=== PATIENT | male | born 1940 | race Caucasian/White ===

== ENCOUNTER 2022-09-25 20:03 | Inpatient (IN) | payer OTHER ==
[~2022-09-25] VITALS: Ht 160 cm; Wt 56.8 kg
[2022-09-25] MEDS ORDERED: MORPHINE SULFATE 4 MG/ML CPJ (NOT FOR IM USE) IV STA (21:23)
[2022-09-25] MEDS ORDERED: ONDANSETRON HCL 4MG/2ML INJ IV STA (21:23)
[2022-09-25] MEDS ORDERED: KETOROLAC 30MG/ML VIAL IV STA (21:23)
[2022-09-25] MEDS ORDERED: SODIUM CHLORIDE 0.9% 1,000 ML IV ONE (21:30)
[2022-09-25 23:23] LABS: BASOPHILS % 0.4 % (0.0-2.0); EOSINOPHILS % 0.1 % (0.0-5.0); HEMATOCRIT. 33.1 % (42.0-52.0); HEMOGLOBIN. 11.3 g/dL (14.0-18.0); MEAN CORPUSCULAR HEMOGLOBIN 31.4 pg (28.0-32.0); MEAN PLATELET VOLUME 7.1 fl (7.4-10.4); MONOCYTES % 6.3 % (2.0-8.0); NEUTROPHILS % 78.2 % (40.0-76.0); PLATELET 292 x1000/uL (130-400)
[2022-09-25 23:27] LABS: CHLORIDE 94 mEq/L (98-107)
[2022-09-26] MEDS ORDERED: IBUP-2028 MT (01:39)
[2022-09-26] MEDS ORDERED: HYDR-4001 MT (01:39)
[2022-09-26] MEDS ORDERED: MORPHINE SULFATE 4 MG/ML CPJ (NOT FOR IM USE) IV STA (02:09)
[2022-09-26] MEDS ORDERED: ONDANSETRON HCL 4MG/2ML INJ IV STA (02:09)
[2022-09-26] MEDS ORDERED: ONDANSETRON HCL 4MG/2ML INJ IV PRN (09:15)
[2022-09-26] MEDS: AMLODIPINE 10MG TABLET PO SCH (10:15)
[2022-09-26 11:00] VITALS: BP 162/68
[2022-09-26] MEDS ORDERED: HYDRALAZINE HCL 100MG TABLET PO NR (11:45)
[2022-09-26] MEDS ORDERED: NALOXONE HCL 0.4MG/ML VIAL IV PRN (12:00)
[2022-09-26] MEDS: HYDROCODONE/ACETAMINOPHEN 10/325MG TABLET PO PRN ×2 (14:36→21:39)
[2022-09-26 15:38] VITALS: BP 153/78
[2022-09-26 17:20] LABS: CREATINE KINASE 196 IU/L (39-308)
[2022-09-26 20:00] VITALS: BP 163/72
[2022-09-26] MEDS: HYDRALAZINE HCL 100MG TABLET PO SCH (21:38)
[2022-09-26] MEDS: ACETAMINOPHEN 325MG TABLET PO PRN (23:35)
[2022-09-27 07:57] VITALS: BP 135/55
[2022-09-27] MEDS: HYDRALAZINE HCL 100MG TABLET PO SCH ×2 (09:13→20:50)
[2022-09-27] MEDS: AMLODIPINE 10MG TABLET PO SCH (09:14)
[2022-09-27] MEDS: ACETAMINOPHEN 325MG TABLET PO PRN ×2 (10:11→23:50)
[2022-09-27] MEDS ORDERED: MORPHINE SULFATE 15MG TABLET SR PO PRN (11:00)
[2022-09-27 12:00] VITALS: BP 124/58
[2022-09-27] MEDS ORDERED: MORPHINE SULFATE 4 MG/ML CPJ (NOT FOR IM USE) IV PRN (13:45)
[2022-09-27 20:00] VITALS: BP 106/58
[2022-09-28] VITALS: BP 129/55
[2022-09-28 04:00] VITALS: BP 131/51
[2022-09-28 08:00] VITALS: BP 135/65
[2022-09-28] MEDS: AMLODIPINE 10MG TABLET PO SCH (09:00)
[2022-09-28] MEDS: HYDRALAZINE HCL 100MG TABLET PO SCH ×2 (09:00→20:34)
[2022-09-28 12:00] VITALS: BP 133/62
[2022-09-28] MEDS: DOCUSATE SODIUM 250MG CAPSULE PO SCH (12:30)
[2022-09-28] MEDS ORDERED: LACTULOSE 20G/30ML UDC PO NR (12:30)
[2022-09-28] MEDS ORDERED: MORPHINE SULFATE 2 MG/ML CPJ (NOT FOR IM USE) IV PRN (12:39)
[2022-09-28] MEDS ORDERED: NA PHOS,M-B/NA PHOS,DI-BA ENEMA 118ML PR NR (15:15)
[2022-09-28 20:14] VITALS: BP 160/66
[2022-09-28 23:31] VITALS: BP 100/42
[2022-09-29] MEDS: HYDROCODONE/ACETAMINOPHEN 10/325MG TABLET PO PRN ×4 (00:14→23:34)
[2022-09-29 04:00] VITALS: BP 127/58
[2022-09-29 08:00] VITALS: BP 119/52
[2022-09-29] MEDS: AMLODIPINE 10MG TABLET PO SCH (08:21)
[2022-09-29] MEDS: DOCUSATE SODIUM 250MG CAPSULE PO SCH (08:21)
[2022-09-29] MEDS: HYDRALAZINE HCL 100MG TABLET PO SCH ×2 (08:21→22:36)
[2022-09-29 12:00] VITALS: BP 127/64
[2022-09-29 16:00] VITALS: BP 138/60
[2022-09-29 19:44] VITALS: BP 135/60
[2022-09-29 21:54] LABS: INR 1.1; PROTHROMBIN TIME 11.7 sec (9.6-11.0)
[2022-09-29] MEDS: DEXT 5%/LACTATED RINGERS 1,000 ML IV SCH (23:35)
[2022-09-29 23:42] VITALS: BP 114/49
[2022-09-30 04:00] VITALS: BP 110/62
[2022-09-30] MEDS ORDERED: LIDOCAINE HCL 1%/EPI 1:200,000 30 ML VIAL ONE (06:54)
[2022-09-30] MEDS ORDERED: THROMBIN (BOVINE) 5000 UNITS/VIAL TOP ONE (06:54)
[2022-09-30 06:55] VITALS: BP 110/64
[2022-09-30] MEDS ORDERED: GENTAMICIN SULF 40MG/ML 2ML VIAL ONE (06:55)
[2022-09-30] MEDS ORDERED: PROPOFOL 200MG/20ML VIAL IV ONE (07:18)
[2022-09-30] MEDS ORDERED: ROCURONIUM BROMIDE 10MG/ML VIAL 5ML IV ONE ×2 (07:18→08:06)
[2022-09-30] MEDS ORDERED: LIDOCAINE HCL 1% 20ML VIAL (Pyxis) INJ ONE (07:18)
[2022-09-30] MEDS ORDERED: MIDAZOLAM HCL 2 MG/2 ML VIAL ONE (07:19)
[2022-09-30] MEDS ORDERED: FENTANYL CITRATE/PF 50MCG/ML 2ML VIAL ONE (07:19)
[2022-09-30] MEDS ORDERED: KETOROLAC 30MG/ML VIAL ONE (08:30)
[2022-09-30] MEDS ORDERED: DEXAMETHASONE 4MG/ML 1ML VIAL ONE (08:30)
[2022-09-30] MEDS ORDERED: ONDANSETRON HCL 4MG/2ML INJ ONE (08:30)
[2022-09-30] MEDS ORDERED: METOCLOPRAMIDE HCL 10MG/2ML VIAL ONE (08:30)
[2022-09-30] MEDS ORDERED: EPHEDRINE SULFATE 50MG/ML VIAL ONE (08:30)
[2022-09-30] MEDS: DOCUSATE SODIUM 250MG CAPSULE PO SCH (09:00)
[2022-09-30] MEDS ORDERED: ONDANSETRON HCL 4MG/2ML INJ IV PRN (09:00)
[2022-09-30] MEDS: AMLODIPINE 10MG TABLET PO SCH (09:00)
[2022-09-30] MEDS ORDERED: FENTANYL CITRATE/PF 50MCG/ML 2ML VIAL IV PRN (09:00)
[2022-09-30] MEDS: HYDRALAZINE HCL 100MG TABLET PO SCH ×2 (09:00→21:41)
[2022-09-30] MEDS ORDERED: MEPERIDINE HCL/PF 25MG/ML CPJ IV PRN (09:00)
[2022-09-30] MEDS ORDERED: HYDROMORPHONE HCL/PF 2MG/ML CPJ IV PRN (09:00)
[2022-09-30] MEDS ORDERED: SODIUM CHLORIDE 0.9% 1,000 ML IV SCH (09:00)
[2022-09-30] MEDS ORDERED: NEOSTIGMINE METHYLSULFATE 1MG/ML 10 ML VIAL ONE (09:01)
[2022-09-30] MEDS ORDERED: GLYCOPYRROLATE 0.2 MG/ML 2ML VIAL ONE (09:02)
[2022-09-30] MEDS ORDERED: HYDRALAZINE 20MG/ML VIAL IV PRN (09:30)
[2022-09-30 12:02] VITALS: BP 118/63
[2022-09-30] MEDS ORDERED: CEFAZOLIN SODIUM 1000MG/VIAL IV SCH (14:00)
[2022-09-30] MEDS: CEFAZOLIN 1000MG PREMIX 50 ML IV SCH ×2 (14:59→21:40)
[2022-09-30 15:45] VITALS: BP 105/65
[2022-09-30] MEDS: MORPHINE SULFATE 4 MG/ML CPJ (NOT FOR IM USE) IV PRN (16:10)
[2022-09-30] MEDS: DEXT 5%/LACTATED RINGERS 1,000 ML IV SCH (16:16)
[2022-09-30 20:00] VITALS: BP 138/47
[2022-10-01] VITALS: BP 111/66
[2022-10-01] MEDS: MORPHINE SULFATE 4 MG/ML CPJ (NOT FOR IM USE) IV PRN ×4 (00:14→22:33)
[2022-10-01] MEDS: DEXT 5%/LACTATED RINGERS 1,000 ML IV SCH (01:35)
[2022-10-01 04:00] VITALS: BP 128/68
[2022-10-01] MEDS: CEFAZOLIN 1000MG PREMIX 50 ML IV SCH ×2 (06:16→13:24)
[2022-10-01 08:00] VITALS: BP 116/60
[2022-10-01] MEDS: DOCUSATE SODIUM 250MG CAPSULE PO SCH (08:20)
[2022-10-01] MEDS: HYDRALAZINE HCL 100MG TABLET PO SCH ×2 (08:20→22:01)
[2022-10-01] MEDS: AMLODIPINE 10MG TABLET PO SCH (08:21)
[2022-10-01 12:00] VITALS: BP 115/47
[2022-10-01] MEDS ORDERED: HYDRALAZINE 10 MG in SODIUM CHLORIDE 0.9% 49.5 ML IV PRN (13:45)
[2022-10-01 16:00] VITALS: BP 130/83
[2022-10-01 16:00] LABS: BASOPHILS % 0.2 % (0.0-2.0); EOSINOPHILS % 0.1 % (0.0-5.0); HEMATOCRIT. 29.4 % (42.0-52.0); HEMOGLOBIN. 10.2 g/dL (14.0-18.0); LYMPHOCYTES % 7.6 % (20.0-50.0); MEAN CORPUSCULAR HEMOGLOBIN 32.1 pg (28.0-32.0); MEAN CORPUSCULAR VOLUME 92.2 fL (80.0-94.0); MEAN PLATELET VOLUME 6.9 fl (7.4-10.4); NEUTROPHILS % 82.1 % (40.0-76.0); PLATELET 345 x1000/uL (130-400); RED BLOOD CELL COUNT 3.19 mill/uL (4.7-6.1); RED CELL DISTRIBUTION WIDTH 13.4 % (11.6-14.6)
[2022-10-01 16:23] LABS: CHLORIDE 95 mEq/L (98-107)
[2022-10-01] MEDS ORDERED: HYDRALAZINE 5 MG in SODIUM CHLORIDE 0.9% 49.75 ML IV PRN (17:45)
[2022-10-01 20:00] VITALS: BP 124/61
[2022-10-02] VITALS (7 sets, daily range): BP systolic 119–138; BP diastolic 55–72
[2022-10-02] MEDS: DEXT 5%/LACTATED RINGERS 1,000 ML IV SCH ×2 (00:16→13:20)
[2022-10-02] MEDS: MORPHINE SULFATE 4 MG/ML CPJ (NOT FOR IM USE) IV PRN ×5 (03:43→22:20)
[2022-10-02] MEDS: AMLODIPINE 10MG TABLET PO SCH (08:50)
[2022-10-02] MEDS: HYDRALAZINE HCL 100MG TABLET PO SCH ×2 (08:51→21:30)
[2022-10-02] MEDS: DOCUSATE SODIUM 250MG CAPSULE PO SCH (08:51)
[2022-10-02] MEDS ORDERED: MORPHINE SULFATE 0.5MG/ML SYR 1ML(NEO) IV PRN (15:45)
[2022-10-02] MEDS ORDERED: MORPHINE SULFATE 4 MG/ML CPJ (NOT FOR IM USE) IV PRN (16:00)
[2022-10-03 04:00] VITALS: BP 125/61
[2022-10-03] MEDS: MORPHINE SULFATE 4 MG/ML CPJ (NOT FOR IM USE) IV PRN ×3 (04:31→18:16)
[2022-10-03 06:19] LABS: BASOPHILS % 0.3 % (0.0-2.0); EOSINOPHILS % 0.5 % (0.0-5.0); HEMATOCRIT. 26.1 % (42.0-52.0); HEMOGLOBIN. 9.1 g/dL (14.0-18.0); LYMPHOCYTES % 14.9 % (20.0-50.0); MEAN CORPUSCULAR HEMOGLOBIN 31.8 pg (28.0-32.0); MEAN CORPUSCULAR VOLUME 91.2 fL (80.0-94.0); MEAN PLATELET VOLUME 6.9 fl (7.4-10.4); MONOCYTES % 10.6 % (2.0-8.0); NEUTROPHILS % 73.7 % (40.0-76.0); PLATELET 332 x1000/uL (130-400); RED BLOOD CELL COUNT 2.86 mill/uL (4.7-6.1); RED CELL DISTRIBUTION WIDTH 12.8 % (11.6-14.6)
[2022-10-03 07:24] LABS: CHLORIDE 93 mEq/L (98-107)
[2022-10-03] MEDS: AMLODIPINE 10MG TABLET PO SCH (10:08)
[2022-10-03] MEDS: HYDRALAZINE HCL 100MG TABLET PO SCH ×2 (10:08→22:23)
[2022-10-03] MEDS: DOCUSATE SODIUM 250MG CAPSULE PO SCH (10:08)
[2022-10-03 12:00] VITALS: BP 110/52
[2022-10-03 16:00] VITALS: BP 108/52
[2022-10-03 20:00] VITALS: BP 124/52
[2022-10-04] VITALS (7 sets, daily range): BP systolic 126–153; BP diastolic 57–86
[2022-10-04] MEDS: AMLODIPINE 10MG TABLET PO SCH (08:54)
[2022-10-04] MEDS: HYDRALAZINE HCL 100MG TABLET PO SCH ×2 (08:54→22:33)
[2022-10-04] MEDS: DOCUSATE SODIUM 250MG CAPSULE PO SCH (08:54)
[2022-10-04] MEDS: MORPHINE SULFATE 4 MG/ML CPJ (NOT FOR IM USE) IV PRN (10:48)
[2022-10-05] VITALS: BP 129/57
[2022-10-05] MEDS: MORPHINE SULFATE 4 MG/ML CPJ (NOT FOR IM USE) IV PRN ×2 (00:35→09:14)
[2022-10-05 04:00] VITALS: BP 132/56
[2022-10-05 08:00] VITALS: BP 135/55
[2022-10-05 12:00] VITALS: BP 129/66
[2022-10-05] MEDS: AMLODIPINE 10MG TABLET PO SCH (12:12)
[2022-10-05] MEDS: DOCUSATE SODIUM 250MG CAPSULE PO SCH (12:12)
[2022-10-05] MEDS: HYDRALAZINE HCL 100MG TABLET PO SCH ×2 (12:12→21:15)
[2022-10-05 16:00] VITALS: BP 122/57
[2022-10-05] MEDS ORDERED: NALOXONE HCL 0.4MG/ML VIAL IV PRN (17:45)
[2022-10-05 20:00] VITALS: BP 121/50
[2022-10-05] MEDS: HYDROCODONE/ACETAMINOPHEN 5/325MG TABLET PO PRN (21:58)
[2022-10-06] VITALS: BP 120/46
[2022-10-06] MEDS: HYDROCODONE/ACETAMINOPHEN 5/325MG TABLET PO PRN ×3 (02:06→13:48)
[2022-10-06 04:00] VITALS: BP_SYST 122; BP_SYST 130; BP_DIAS 53; BP_DIAS 79
[2022-10-06 08:00] VITALS: BP 130/63
[2022-10-06] MEDS: AMLODIPINE 10MG TABLET PO SCH (09:28)
[2022-10-06] MEDS: DOCUSATE SODIUM 250MG CAPSULE PO SCH (09:28)
[2022-10-06] MEDS: HYDRALAZINE HCL 100MG TABLET PO SCH ×2 (09:28→20:44)
[2022-10-06 12:00] VITALS: BP 138/62
[2022-10-06 16:00] VITALS: BP 130/59
[2022-10-06 20:00] VITALS: BP 110/72
[2022-10-06] MEDS: ACETAMINOPHEN 325MG TABLET PO PRN (20:45)
[2022-10-07] VITALS (8 sets, daily range): BP systolic 105–136; BP diastolic 59–72
[2022-10-07] MEDS: DOCUSATE SODIUM 250MG CAPSULE PO SCH (09:34)
[2022-10-07] MEDS: AMLODIPINE 10MG TABLET PO SCH (09:34)
[2022-10-07] MEDS: HYDRALAZINE HCL 100MG TABLET PO SCH (09:35)
[2022-10-07] MEDS: HYDROCODONE/ACETAMINOPHEN 5/325MG TABLET PO PRN ×2 (09:53→16:20)
[2022-10-07] MEDS ORDERED: HYDRALAZINE 20MG/ML VIAL IV PRN (11:00)
[2022-10-07 16:54] LABS: CHLORIDE 89 mEq/L (98-107)
== END 2022-10-07 17:20 | DRG 516 ==
LOC: ER 20:03 → EDBEDREQ 09-26 03:49 → EDBEDREQTM 09-26 03:49 → MICUSO 09-26 06:44 → 4WST 09-26 10:50 → 6EST 10-03 07:35 → 5WST 10-07 10:44
PROVIDERS: ADMIT Internal Medicine; ATTEND Internal Medicine
PROC: 01NB0ZZ Release Lumbar Nerve, Open Approach (ICD-10-PCS; principal; 2022-09-30)
PROC: 4A11X4G Monitoring of Peripheral Nervous Electrical Activity, Intraoperative, External Approach (ICD-10-PCS; 2022-09-30)
DX: M48.061 Spinal stenosis, lumbar region without neurogenic claudication (principal); E87.1 Hypo-osmolality and hyponatremia; G82.20 Paraplegia, unspecified; I16.0 Hypertensive urgency; D64.9 Anemia, unspecified; I10 Essential (primary) hypertension; Z20.822 Contact with and (suspected) exposure to COVID-19; M47.816 Spondylosis without myelopathy or radiculopathy, lumbar region; M47.26 Other spondylosis with radiculopathy, lumbar region; Z74.01 Bed confinement status
CPT/HCPCS: 36415; 72100; 72148; 72192; 73502; 73552; 73560; 76000; 80048; 80053; 82550; 84295; 85025; 86850; 86900; 87426; 88311; 93005; 93971; 95925; 95926; 95928; 95929; 97116; 97162; 97164; 97166; 97530; 99285; C1893; C9803; J0690; J1100; J1580; J1885; J2175; J2250; J2270; J2405; J2704; J2710; J2765; J3010; J3490; J7030; J7121